=== PATIENT | female | born 1985 | race African-American/Black ===

== ENCOUNTER → 2021-12-31 | Outpatient (CLI) | payer BC ==
[~2021-12-31] MED LIST: GADOTERATE 5 MMOL/10ML VIAL. IVP ONE
--- NOTE | 2021-12-31 17:34 | KCIC ---
EXAM: Pelvis MRI without and with contrast. HISTORY: Enlarged uterus. TECHNIQUE: Multiplanar, multisequence magnetic resonance imaging of the pelvis was performed without and with contrast. COMPARISON: None. FINDINGS: There is an enlarged uterus containing multiple heterogeneous enhancing masses consistent w ith fibroids. The uterus measures 11.9 cm craniocaudally by 15.8 cm transversely by 9.8 cm anterior p osteriorly. There are innumerable fibroids, the largest of which measures 6.1 cm within the left lowe r uterine segment. There is a 4.9 cm fibroid with cystic degeneration within the left anterior uterin e fundus. There is a 5.1 cm pedunculated fibroid along the superior left uterine fundus. There are mu ltiple subserosal fibroids, the largest of which measures 3.8 cm within the right anterior uterine fu ndus. There is a 1.2 cm submucosal fibroid projecting into the endometrial cavity. There is an additi onal fibroid with submucosal involvement and projection into the endometrial cavity measuring 1.7 cm. There is fluid within the endometrial cavity measuring 8 mm in thickness. There is an 8 mm nabothian cyst within the cervix. There is a 3.8 cm simple appearing right ovarian cyst and there are small bi lateral ovarian follicles. There is a small amount of right adnexal fluid and fluid within the anteri or and posterior cul-de-sac. There is mass effect on the bladder. The bladder is otherwise unremarkab le. There is no lymphadenopathy. There is no suspicious osseous lesion. The visualized bowel loops ar e unremarkable. IMPRESSION: 1. Enlarged uterus containing innumerable heterogeneous enhancing fibroids, some of which are subsero antonio and pedunculated and some of which are submucosal and extend into the endometrial cavity. These a re described in detail above. Surgical consultation is recommended. 2. 3.8 cm simple appearing right ovarian follicular cyst. This can be physiologic in a premenopausal female. There is also small amount of suspected physiologic fluid within the right adnexa at anterior and posterior cul-de-sac. 3. Small nabothian cyst within the cervix. Electronically signed by: Melanie Malcolm MD (12/31/2021 5:32 PM) [id number]
== END ==
LOC: KCIC MRI 14:33
PROVIDERS: ATTEND Obstetrics & Gynecology
DX: N85.2 Hypertrophy of uterus (principal); N83.01 Follicular cyst of right ovary; D25.9 Leiomyoma of uterus, unspecified
CPT/HCPCS: 72197; A9575